=== PATIENT | female | born 1950 | race Caucasian/White ===

== ENCOUNTER 2018-03-18 12:08 | Outpatient (CLI) | payer MEDICARE | END 2018-03-18 12:09 | disposition home or self-care (01) | LOC: BICMAMMO 12:08 | PROVIDERS: ATTEND Family Medicine | DX: Z12.31 Encounter for screening mammogram for malignant neoplasm of breast (principal); R92.1 Mammographic calcification found on diagnostic imaging of breast | CPT/HCPCS: 77063; 77067 ==

== ENCOUNTER 2019-04-13 10:58 | Outpatient (CLI) | payer MEDICARE ==
--- NOTE | 2019-04-13 14:21 | MMO ---
Bilateral MAMMO Bilat Screen [facility]. CLINICAL HISTORY: Patient is 68 years old and is seen for screening. The patient has no family history of breast cancer. The patient has no personal history of cancer. VIEWS: The views performed were: bilateral craniocaudal with tomosynthesis and bilateral mediolateral oblique with tomosynthesis. FILMS COMPARED: The present examination has been compared to prior imaging studies performed at [facility] on 10/25/2014, 12/07/2015, 01/09/2017 and 03/18/2018. MAMMOGRAM FINDINGS: The breasts are heterogeneously dense, which could obscure a lesion on mammography. There are stable benign appearing calcifications seen in both breasts. There are no suspicious masses, suspicious calcifications, or new areas of architectural distortion. IMPRESSION: THERE IS NO MAMMOGRAPHIC EVIDENCE OF MALIGNANCY. A ROUTINE FOLLOW-UP MAMMOGRAM IN 1 YEAR IS RECOMMENDED. THE RESULTS OF THIS EXAM WERE SENT TO THE PATIENT. ACR BI-RADS Category 2 - Benign finding MAMMOGRAPHY NOTE: 1. A negative mammogram report should not delay a biopsy if a dominant of clinically suspicious mass is present. 2. Approximately 10% to 15% of breast cancers are not detected by mammography. 3. Adenosis and dense breasts may obscure an underlying neoplasm. Reported by: DANIELLA PATTERSON MD Electonically Signed: [id number]
== END 2019-04-13 10:59 | disposition home or self-care (01) ==
LOC: BICMAMMO 10:58
PROVIDERS: ATTEND Family Medicine
DX: Z12.31 Encounter for screening mammogram for malignant neoplasm of breast (principal)
CPT/HCPCS: 77063; 77067

== ENCOUNTER 2019-05-23 10:43 | Observation (INO) | payer MEDICARE ==
[2019-05-23 11:12] LABS: #Basophils 0.1 thou/uL (0.0-0.2); #Eosinphils 0.1 thou/uL (0.0-0.7); #Lymphocytes 1.4 thou/uL (1.20-3.40); #Monocytes 1.3 thou/uL (0.11-0.59); %Basophils 0.4 % (0.0-1.0); %Eosinophils 0.4 % (0.0-10.0); %Lymphocytes 10.4 % (21.0-51.0); %Monocytes 9.1 % (0.0-10.0); %Neutrophils 79.6 % (42.0-75.0); Hemoglobin 15.1 g/dL (12.0-16.0); Mean Corpuscular HGB CONC 34.3 g/dL (32.0-36.0); Mean Corpuscular Hemoglobin 33.2 pg (27.0-31.0); Mean Corpuscular Volume 96.8 fL (78.0-98.0); Mean Platelet Volume 8.1 fL (7.4-10.4); Platelet Count 272 thou/uL (130-400); Red Blood Cell (RBC) Count 4.54 mill/uL (4.20-5.40); White Blood Cell (WBC) Count 13.8 thou/uL (4.8-10.8)
[2019-05-23 11:29] LABS: ALT (SGPT) 23 U/L (8-55); AST (SGOT) 20 U/L (5-34); Albumin 4.4 g/dL (3.4-4.8); Alkaline Phosphatase 107 U/L (40-150); Anion Gap 13 mmol/L (10-20); BUN (Urea Nitrogen) 10 mg/dL (9.8-20.1); Bilirubin, Total 0.6 mg/dL (0.2-1.2); Calc. Creatinine Clearance 0 mL/min (70-130); Calcium 9.6 mg/dL (7.8-10.44); Carbon Dioxide 25 mmol/L (23-31); Chloride 100 mmol/L (98-107); Estimated GFR-MDRD 58; Globulin 2.7 g/dL (2.4-3.5); Glucose 110 mg/dL (80-115); Lipase 6 U/L (8-78); Potassium 3.9 mmol/L (3.5-5.1); Protein, Total 7.1 g/dL (6.0-8.3); Sodium 134 mmol/L (136-145)
[2019-05-23 11:35] LABS: Bacteria/HPF 3+ HPF (None Seen); Bilirubin Negative (Negative); Blood, Urine 1+ (Negative); Clarity Clear (Clear); Glucose, Urine (Dipstick) Normal (Negative); Leukocyte 500 Leu/uL (Negative); Nitrite Negative (Negative); Protein, Urine (Dipstick) Negative (Neg-Trace); RBC/HPF 0-3 HPF (0-3); Squamous Epithelial 0-3 HPF (0-3); Urobilinogen Normal mg/dL (Less than 2); WBC/HPF 21-50 HPF (0-3)
--- NOTE | 2019-05-23 13:12 | CT ---
CT of abdomen and pelvis: 05/23/2019 COMPARISON: 02/14/2013 HISTORY: Left flank pain TECHNIQUE: Axial CT imaging at 5 mm intervals from lung bases through pubic symphysis without contras t. Coronal reformatted imaging obtained. FINDINGS: Lack of contrast media limits assessment of the viscera, bowel, vascular structures, and fo r lymphadenopathy. The imaged lung bases are unremarkable. No free intraperitoneal air or fluid noted. Multiple stable hepatic cysts are noted. Limited assessment of the gallbladder, spleen, pancreas, and adrenal glands demonstrate no acute findings. Punctate vascular calcification versus nonobstructing stone noted in the midpole of left kidney. There is a cyst within the midpole of the right kidney measuring 5.2 cm in greatest dimension, increa sed in size when compared to prior study at which time it measured 2.9 cm. There are a few punctate calcifications within the right kidney which may signify nonobstructing ston es or vascular calcifications. No evidence for obstructive uropathy is present on either side. Limited assessment of the bowel demonstrates no evidence for obstruction. The appendix is visualized and is normal. There is scattered atherosclerotic calcification of the abdominal aorta and its branches. Review of the osseous structures demonstrates no worrisome lytic or blastic lesions. IMPRESSION: No evidence for obstructive uropathy on either side. Please see above discussion..
[2019-05-23] MEDS ORDERED: Ketorolac Tromethamine 30 MG/ML VIAL ONE (13:53)
[2019-05-23] MEDS ORDERED: cefTRIAXone\\ROCEPHIN 2 GM VIAL ONE (13:53)
[2019-05-23] MEDS ORDERED: Acetaminophen 325 MG TAB ONE (16:58)
[2019-05-23] MEDS ORDERED: Ondansetron PF 4 MG/2 ML Vial IVP PRN (17:20)
[2019-05-23] MEDS ORDERED: Ibuprofen 200 MG TAB PO PRN (17:20)
[2019-05-23] MEDS ORDERED: hydrALAZINE 20 MG/ML VIAL SLOW IVP PRN (17:20)
[2019-05-23] MEDS ORDERED: Acetaminophen 500 MG TAB PO PRN (17:20)
[2019-05-23] MEDS ORDERED: Ondansetron ODT 4 MG TAB PO PRN (17:20)
[2019-05-23 17:47] VITALS: BMI 22.3
[2019-05-23] MEDS: Sodium Chloride 0.9% 1,000 ML IV SCH (20:09)
[2019-05-23] MEDS: Famotidine 20 MG TAB PO SCH (21:48)
[2019-05-23] MEDS: Ketorolac Tromethamine 30 MG/ML VIAL IVP PRN (21:50)
--- NOTE | 2019-05-24 00:09 | HP ---
PRIMARY CARE PROVIDER: Dr. Gena Abbott at [facility]. CHIEF COMPLAINT: Left flank and abdominal pain. HISTORY OF PRESENT ILLNESS: This is a 68-year-old female, who presented to [facility] Emergency Department complaining of 3- to 4-day history of cramping left lower quadrant abdominal pain with some radiation to the back and flank region. The patient denied any recent trauma, injury, dysuria. The patient states that the pain did not change with position and took [id number] pain medications without relief. The patient noted a low-grade fever with body aches and became concerned when this pain did not remit. The patient denies any frequent urinary tract infections or history of kidney stones. The patient denied any recent change to her chronic medication regimen or new medication exposure. The patient denies any recent prescription for antibiotics. The patient denied any travel history or family members with similar symptoms. The patient denied change to bowel habits, melena, or hematuria. In the emergency room, the patient underwent general evaluation including CT imaging of the abdomen and pelvis showing evidence of nonobstructive renal lithiasis. The patient received IV Rocephin after urinalysis was suspicious for urinary tract infection as well as IV Toradol, intravenous normal saline x1 L, and acetaminophen. PAST MEDICAL HISTORY: 1. Hyperlipidemia. 2. Osteoarthritis. 3. Tobacco abuse. 4. Anxiety. PAST SURGICAL HISTORY: 1. Status post section. 2. Status post partial hysterectomy. CURRENT MEDICATIONS: 1. Lexapro 10 mg p.o. daily. 2. Ezetimibe 10 mg p.o. daily. ALLERGIES: NO KNOWN DRUG ALLERGIES. FAMILY HISTORY: No inheritable disease per patient report. SOCIAL HISTORY: The patient is , residing in [place], [place]. Accompanied by her and children in the hospital. Smokes up to a pack of cigarettes daily greater than 25 years. Occasional alcohol use. No illicit drug use. REVIEW OF SYSTEMS: CONSTITUTIONAL: Negative for weight loss or gain, ability to conduct usual activities. SKIN: Negative for rash, itching. EYES: Negative for double vision, pain. ENT/MOUTH: Negative for nose bleeding, neck stiffness, pain, tenderness. CARDIOVASCULAR: Negative for palpitations, dyspnea on exertion, orthopnea. RESPIRATORY: Negative for shortness of breath, wheezing, cough, hemoptysis, fever or night sweats. GASTROINTESTINAL: Negative for poor appetite, abdominal pain, heartburn, nausea, vomiting, constipation, or diarrhea. GENITOURINARY: Negative for urgency, frequency, dysuria, nocturia. MUSCULOSKELETAL: Negative for pain, swelling. NEUROLOGIC/PSYCHIATRIC: Negative for anxiety, depression. ALLERGY/IMMUNOLOGIC: Negative for skin rash, bleeding tendency. Otherwise negative except as stated per HPI. PHYSICAL EXAMINATION: VITAL SIGNS: On admission, blood pressure 117/71, pulse 104, respiratory rate 16, temperature 100.0 degrees Fahrenheit, O2 saturation 100% on room air. GENERAL APPEARANCE: This is a 68-year-old female, alert and oriented x3, pleasant, conversant, smiling, in no acute distress. HEENT: Pupils are equal, round, reactive to light and accommodation. Extraocular muscles are intact. No scleral icterus. No conjunctival injection. Nares patent. OP is clear. Teeth in fair repair. NECK: Supple. No cervical adenopathy. No thyromegaly. No carotid bruits. No JVD appreciated. Cervical spine with full active and passive range of motion. No meningeal signs noted. CHEST: Lungs are clear to auscultation bilaterally. CARDIOVASCULAR: S1, S2 without noted murmur, rub, or gallop. ABDOMEN: Rounded, soft, with mild tenderness to palpation in the left lower quadrant and left flank region with mild CVA tenderness, left greater than right. No rebound or guarding noted. EXTREMITIES: Warm and dry with fair turgor. No clubbing, cyanosis, or asymmetric edema appreciated. Pulses palpable distally at the dorsalis pedis, posterior tibial, and popliteal arteries bilaterally. Capillary refill less than 2 seconds. NEUROLOGIC: Cranial nerves 2 through 12 are grossly intact. No focal or lateralizing signs appreciated. PERTINENT LAB AND X-RAY FINDINGS: Complete metabolic profile within normal limits. CBC showed a white blood cell count of 13.8, hemoglobin 15, hematocrit 44, and platelet count 272, with 80% neutrophils. Urinalysis dated 05/23/2019, positive for leukocyte esterase with urine microscopy showing 21 to 50 wbc's per high-power field and 3+ bacteria. CT of the abdomen and pelvis dated 05/23/2019 showed punctate renal lithiasis without obstructive process. ASSESSMENT AND PLAN: 1. Urinary tract infection/pyelonephritis. The patient will be observed on the medical floor. Suspected upper tract infection given flank pain at the time of presentation. Continue Rocephin 2 g IV q.24 hours. Await final urine culture results. Continue intravenous normal saline at 100 mL/h. Encouraged increased free water intake orally. Pain control with Toradol 30 mg IV q.6 hours p.r.n. 2. Left lower quadrant abdominal pain secondary to #1. Continue supportive management as outlined previously. Serial abdominal exams. 3. Neutrophilic leukocytosis secondary to #1. Continue treatment as outlined previously. Repeat CBC in the a.m. 4. Tobacco abuse. We will offer smoking cessation resources prior to discharge. 5. Prophylaxis. SCDs while in bed. Pepcid 20 mg p.o. b.i.d. CODE STATUS: Full. Surrogate medical decision maker is the patient's spouse. Job ID: [id number]
[2019-05-24 06:08] LABS: Anion Gap 9 mmol/L (10-20); BUN (Urea Nitrogen) 11 mg/dL (9.8-20.1); Calc. Creatinine Clearance 56 mL/min (70-130); Calcium 8.4 mg/dL (7.8-10.44); Carbon Dioxide 24 mmol/L (23-31); Chloride 110 mmol/L (98-107); Estimated GFR-MDRD 69; Glucose 87 mg/dL (80-115); Potassium 4.4 mmol/L (3.5-5.1); Sodium 139 mmol/L (136-145)
[2019-05-24 06:11] LABS: Hemoglobin 12.6 g/dL (12.0-16.0); Mean Corpuscular HGB CONC 33.7 g/dL (32.0-36.0); Mean Corpuscular Hemoglobin 32.9 pg (27.0-31.0); Mean Corpuscular Volume 97.7 fL (78.0-98.0); Mean Platelet Volume 8.3 fL (7.4-10.4); Platelet Count 214 thou/uL (130-400); Red Blood Cell (RBC) Count 3.82 mill/uL (4.20-5.40); White Blood Cell (WBC) Count 9.9 thou/uL (4.8-10.8)
[2019-05-24 06:15] LABS: Band 10 % (5-11); Eosinophils 1 % (0-10); Lymphocytes 12 % (21-51); MDiff Complete? YES; Monocytes 8 % (0-10); Neutrophil 66 % (42-75); Reactive Lymphocytes 3 % (0-10)
[2019-05-24] MEDS: Sodium Chloride 0.9% 1,000 ML IV SCH (06:16)
[2019-05-24] MEDS: Ketorolac Tromethamine 30 MG/ML VIAL IVP PRN (06:19)
[2019-05-24 08:01] VITALS: BP 128/60; TEMP 98.5
[2019-05-24] MEDS: Famotidine 20 MG TAB PO SCH ×2 (08:45→09:57)
[2019-05-24] MEDS ORDERED: Prevnar 13-Val Conj/PF 0.5 ML SYRINGE IM ONE (09:00)
--- NOTE | 2019-05-24 11:10 | CON ---
DATE OF CONSULTATION: 05/24/2019 REASON FOR CONSULTATION: Urinary tract infection and kidney stones. HISTORY OF PRESENT ILLNESS: Ms. Castrejon is a 68-year-old female, presented to the hospital on 05/23/2019 with left-sided flank pain. She underwent CT scan demonstrates punctate renal stones and a right renal cyst. There is no evidence of obstruction. She does not have issues with the urinary tract infections on a regular basis. She has had a low-grade fever and her urinalysis did demonstrate bacteria. She denies gross hematuria. PAST MEDICAL HISTORY: Hyperlipidemia, osteoarthritis, and anxiety. PAST SURGICAL HISTORY: and hysterectomy. CHRONIC MEDICATIONS: 1. Lexapro. 2. Ezetimibe. ALLERGIES: NO KNOWN DRUG ALLERGIES. FAMILY HISTORY: Noncontributory. SOCIAL HISTORY: She is . She is a smoker and smokes approximately one pack of cigarettes per day. Denies history of alcohol use. REVIEW OF SYSTEMS: RESPIRATORY: No shortness of breath. CARDIOVASCULAR: No chest pain or palpitations. GASTROINTESTINAL: Denies chronic constipation or diarrhea. GENITOURINARY: Please see history of present illness. ALLERGY: Denies a skin rash. Otherwise, negative except as stated in the history of present illness. PHYSICAL EXAMINATION: GENERAL: She is awake and alert. She is in no distress at this time. HEENT: Normocephalic and atraumatic. NECK: Supple without masses. CHEST: Clear to auscultation. CARDIOVASCULAR: Regular rate and rhythm. ABDOMEN: Soft and nontender. No palpable masses. Liver and spleen not palpable. No peritoneal signs. LABORATORY DATA: White blood cell count on admission 13.8. Urinalysis demonstrates 3+ bacteria with 20 to 50 white cells and 1+ blood. Creatinine 0.96. IMPRESSION: Ms. Castrejon is a 68-year-old female with signs and symptoms and findings consistent with pyelonephritis on the left side. She has no obstructive uropathy. The calcifications seen are quite small and not amenable to ESWL. There is no obstructive uropathy. Right renal cyst is asymptomatic and benign in nature. RECOMMENDATIONS: Antibiotic therapy for two weeks based on culture results. No surgical intervention recommended. Job ID: [id number]
[2019-05-24] MEDS ORDERED: cefTRIAXone\\ROCEPHIN 2 GM in Sodium Chloride 0.9% 100 ML IVPB SCH (14:00)
--- NOTE | 2019-05-24 22:10 | DIS ---
DATE OF ADMISSION: 05/23/2019 DATE OF DISCHARGE: 05/24/2019 DISCHARGE DIAGNOSES: 1. Urinary tract infection/left-sided pyelonephritis with suspected Escherichia coli species. 2. Left lower quadrant abdominal pain secondary to #1, improved. 3. Neutrophilic leukocytosis, resolved. 4. Tobacco use. CONSULTATIONS: None. PERTINENT LABORATORY AND X-RAY FINDINGS: Complete metabolic profile within normal limits. CBC showed a white blood cell count ranging between 9.9 to 13.8. Urine culture dated 05/23/2019, showed greater than 100,000 colonies of presumptive E coli species. CT of the abdomen and pelvis dated 05/23/2019, showed no evidence of obstructive uropathy. HOSPITAL COURSE: The patient was observed on the medical floor after initially presenting with left lower quadrant abdominal pain and flank discomfort with urinalysis concerning for infectious process. The patient was treated for early pyelonephritis/urinary tract infection with IV Rocephin. The patient also received intravenous normal saline and Toradol for pain control. The patient clinically improved and urine culture was positive for presumptive E coli species at greater than 100,000 colonies. The patient will transition to Levaquin 750 mg orally to complete a 10-day course of antibiotics. I have examined the patient at time of discharge and discussed followup instructions. The patient verbalized understanding and in agreement, ready for discharge on 05/24/2019. DISCHARGE MEDICATIONS: 1. Levaquin 750 mg p.o. daily x10 days. 2. Tramadol 50 mg p.o. b.i.d. p.r.n. pain, #20 given. 3. Ezetimibe 10 mg p.o. daily. 4. Lexapro 10 mg p.o. daily. FOLLOWUP: The patient may follow up with her primary care provider, Rosita Stone within 10 days of discharge. CONDITION ON DISCHARGE: Stable. ACTIVITY: Ad-dmitry. DIET: Regular. CODE STATUS: Full. DISPOSITION: Home on 05/24/2019. Job ID: [id number]
== END 2019-05-24 11:42 | disposition home or self-care (01) ==
LOC: ERS 10:43 → 2SW 14:15
PROVIDERS: ADMIT Family Medicine; ATTEND Family Medicine
DX: N20.0 Calculus of kidney (principal); Q61.01 Congenital single renal cyst; E78.5 Hyperlipidemia, unspecified; M19.90 Unspecified osteoarthritis, unspecified site; F41.9 Anxiety disorder, unspecified; F17.210 Nicotine dependence, cigarettes, uncomplicated; Z79.899 Other long term (current) drug therapy
CPT/HCPCS: 74176; 80048; 80053; 83690; 85007; 85025; 85027; 87077; 87086; 87186; 96361 ×3; 96365; 96375; 96376 ×2; 99285; G0378 ×3; 36415; 81003; 81015; 96374; J0696; J1885

== ENCOUNTER 2020-06-30 11:02 | Outpatient (CLI) | payer MEDICARE ==
--- NOTE | 2020-06-30 11:38 | MMO ---
Bilateral MAMMO Bilat Screen [facility]. CLINICAL HISTORY: Patient is 69 years old and is seen for screening. The patient has no family history of breast cancer. The patient has no personal history of cancer. VIEWS: The views performed were: bilateral craniocaudal with tomosynthesis and bilateral mediolateral oblique with tomosynthesis. FILMS COMPARED: The present examination has been compared to prior imaging studies performed at [facility] on 12/07/2015, 01/09/2017, 03/18/2018 and 04/13/2019. This study has been interpreted with the assistance of computer-aided detection. MAMMOGRAM FINDINGS: The breasts are heterogeneously dense, which could obscure a lesion on mammography. There are stable benign appearing calcifications seen in both breasts. There are no suspicious masses, suspicious calcifications, or new areas of architectural distortion. IMPRESSION: THERE IS NO MAMMOGRAPHIC EVIDENCE OF MALIGNANCY. A ROUTINE FOLLOW-UP MAMMOGRAM IN 1 YEAR IS RECOMMENDED. THE RESULTS OF THIS EXAM WERE SENT TO THE PATIENT. ACR BI-RADS Category 2 - Benign finding MAMMOGRAPHY NOTE: 1. A negative mammogram report should not delay a biopsy if a dominant of clinically suspicious mass is present. 2. Approximately 10% to 15% of breast cancers are not detected by mammography. 3. Adenosis and dense breasts may obscure an underlying neoplasm. Reported by: CLEVELAND MENDEZ MD Electonically Signed: [id number]
== END 2020-06-30 11:03 | disposition home or self-care (01) ==
LOC: BICMAMMO 11:02
PROVIDERS: ATTEND Family Medicine
DX: Z12.31 Encounter for screening mammogram for malignant neoplasm of breast (principal)
CPT/HCPCS: 77063; 77067

== ENCOUNTER 2021-07-26 13:30 | Outpatient (CLI) | payer MEDICARE | END 2021-07-26 13:31 | disposition home or self-care (01) | LOC: BICMAMMO 13:30 | PROVIDERS: ATTEND Family Medicine | DX: Z12.31 Encounter for screening mammogram for malignant neoplasm of breast (principal) | CPT/HCPCS: 77063; 77067 ==

== ENCOUNTER 2022-08-06 11:22 | Outpatient (CLI) | payer MEDICARE | END 2022-08-06 11:23 | disposition home or self-care (01) | LOC: BICMAMMO 11:22 | PROVIDERS: ATTEND Family Medicine | DX: Z12.31 Encounter for screening mammogram for malignant neoplasm of breast (principal) | CPT/HCPCS: 77063; 77067 ==

== ENCOUNTER 2023-10-24 11:51 | Outpatient (CLI) | payer MEDICARE | END 2023-10-24 11:52 | disposition home or self-care (01) | LOC: BICMAMMO 11:51 | PROVIDERS: ATTEND Family Medicine | DX: Z12.31 Encounter for screening mammogram for malignant neoplasm of breast (principal) | CPT/HCPCS: 77063; 77067 ==

== ENCOUNTER 2024-11-03 09:51 | Outpatient (CLI) | payer OTHER | END 2024-11-03 09:52 | disposition home or self-care (01) | LOC: BICMAMMO 09:51 | PROVIDERS: ATTEND Family Medicine | DX: Z12.31 Encounter for screening mammogram for malignant neoplasm of breast (principal) | CPT/HCPCS: 77063; 77067 ==

== ENCOUNTER 2025-09-14 19:18 | Emergency (ER) | payer OTHER ==
[2025-09-14] MEDS ORDERED: HYDROcodone/Acetaminophen 5/325 mg Tablet ONE (19:49)
[2025-09-14 20:15] LABS: #Basophils 0.09 10x3/uL (0.0-0.2); #Eosinophils 0.30 10x3/uL (0.0-0.7); #Monocytes 0.87 10x3/uL (0.11-0.59); #Neutrophils 10.07 10x3/uL (1.40-6.50); %Basophils 0.7 % (0.0-1.0); %Eosinophils 2.3 % (0.0-10.0); %Lymphocytes 13.6 % (21.0-51.0); %Monocytes 6.6 % (0.0-10.0); %Neutrophils 76.5 % (42.0-75.0); Hematocrit 41.8 % (36.0-47.0); Hemoglobin 13.8 g/dL (12.0-16.0); Mean Corpuscular Hemoglobin 31.2 pg (27.0-31.0); Mean Corpuscular Volume 94.4 fL (78.0-98.0); Platelet Count 246 10x3/uL (130-400); Red Blood Cell (RBC) Count 4.43 mill/uL (4.20-5.40); White Blood Cell (WBC) Count 13.16 10x3/uL (4.8-10.8)
[2025-09-14 20:16] LABS: Bacteria/HPF None Seen HPF (None Seen); CAUTI Indications for Culture Alt mental st,lethar; Glucose, Urine (Dipstick) Normal (Negative); Leukocyte Negative Leu/uL (Negative); Protein, Urine (Dipstick) Negative (Neg-Trace); Specific Gravity, Urine 1.018 (1.002-1.036); WBC/HPF 0-3 HPF (0-3)
[2025-09-14 20:18] LABS: Urine Culture Reflex No No
[2025-09-14 20:32] LABS: ALT (SGPT) 9 U/L (Less than 34); AST (SGOT) 19 U/L (11-34); Albumin 3.6 g/dL (3.1-4.5); Alkaline Phosphatase 99 U/L (40-110); Anion Gap 13 mmol/L (10-20); BUN (Urea Nitrogen) 16 mg/dL (9.8-20.1); Bilirubin, Total 0.2 mg/dL (0.3-1.2); Calc. Creatinine Clearance 0 mL/min (70-130); Calcium 8.8 mg/dL (7.8-10.44); Carbon Dioxide 24 mmol/L (23-31); Chloride 107 mmol/L (98-107); Globulin 2.4 g/dL (2.4-3.5); Glucose 110 mg/dL (83-110); Lipase 25 U/L (8-78); Potassium 3.9 mmol/L (3.5-5.1); Sodium 140 mmol/L (136-145)
[2025-09-14] MEDS ORDERED: Ciprofloxacin 500 MG TAB ONE (22:03)
== END 2025-09-14 22:08 | disposition home or self-care (01) ==
LOC: ERS 19:18
DX: K52.9 Noninfective gastroenteritis and colitis, unspecified (principal); M48.56XA Collapsed vertebra, not elsewhere classified, lumbar region, initial encounter for fracture; F17.210 Nicotine dependence, cigarettes, uncomplicated; W01.0XXA Fall on same level from slipping, tripping and stumbling without subsequent striking against object, initial encounter
CPT/HCPCS: 74177; 80053; 81001; 83690; 85025; 87428